=== PATIENT | female | born 1950 | race Caucasian/White ===

== ENCOUNTER 2024-09-23 13:02 | Emergency (ER) | payer BC, MEDICAID ==
[~2024-09-23] VITALS: Ht 160 cm; Wt 86.2 kg
[2024-09-23 13:04] VITALS: O2SAT 99
== END 2024-09-23 14:14 | disposition home or self-care (01) ==
LOC: ER 13:02
DX: S80.212A Abrasion, left knee, initial encounter (principal); I10 Essential (primary) hypertension; E88.810 Metabolic syndrome; R22.43 Localized swelling, mass and lump, lower limb, bilateral; Z88.8 Allergy status to other drugs, medicaments and biological substances; X58.XXXA Exposure to other specified factors, initial encounter; Y93.89 Activity, other specified; Y92.89 Other specified places as the place of occurrence of the external cause; Y99.8 Other external cause status
CPT/HCPCS: A4606; A4663